=== PATIENT | male | born 1990 | race Two or more races ===

== ENCOUNTER 2022-09-11 14:26 | Emergency (ER) | payer MEDICAID ==
[~2022-09-11] VITALS: Ht 167.6 cm; Wt 66.5 kg
[2022-09-11 14:32] VITALS: BP 127/69
[2022-09-11] MEDS ORDERED: TETANUS-DIPTH-ACEL PERTUSSIS 0.5ML SYR Tdap IM ONE (15:30)
[2022-09-11] MEDS ORDERED: IBUPROFEN 600 MG TAB PO ONE (15:30)
[2022-09-11] MEDS ORDERED: CEPH-510 PO (15:43)
[2022-09-11] MEDS ORDERED: IBUP600T28 PO (15:43)
== END 2022-09-11 16:40 | disposition home or self-care (01) ==
LOC: ER 14:26
DX: S61.302A Unspecified open wound of right middle finger with damage to nail, initial encounter (principal); X58.XXXA Exposure to other specified factors, initial encounter; Y93.89 Activity, other specified; Y92.89 Other specified places as the place of occurrence of the external cause; Y99.8 Other external cause status
CPT/HCPCS: 29130; 73130; 90471; 90715